=== PATIENT | female | born 1985 | race Two or more races ===

== ENCOUNTER 2021-10-16 08:44 | Emergency (ER) | payer OTHER ==
[~2021-10-16] VITALS: Ht 149.9 cm; Wt 87.5 kg
[2021-10-16] MEDS ORDERED: PRENATAL DHA200 MG (09:01)
[2021-10-16] MEDS ORDERED: PRENATAL 19 CH1 EAC1 (09:01)
== END 2021-10-16 17:07 | disposition home or self-care (01) ==
LOC: ER 08:44
DX: O20.9 Hemorrhage in early pregnancy, unspecified (principal); Z3A.01 Less than 8 weeks gestation of pregnancy